=== PATIENT | male | born 1950 | race Caucasian/White ===

== ENCOUNTER 2017-07-20 15:15 | Observation (INO) | payer MEDICARE ==
[2017-07-20] MEDS ORDERED: NS 0.9% 1000 ML* 2,000 ML IV ONE (15:33)
[2017-07-20] MEDS ORDERED: Insulin REGULAR(*) 1 UNITS UNIT IV ONE (15:33)
[2017-07-20 16:21] LABS: ABS Basophils 0 10^3/ul (0-0.2); ABS Eosinophils 0.1 10^3/ul (0-0.6); ABS Lymphocytes 1.2 10^3/ul (1.0-4.8); ABS Monocytes 0.7 10^3/ul (0-0.8); ABS Neutrophils 2.9 10^3/ul (1.5-7.7); ABS Nucleated RBC 0 10^3/ul; Eosinophil % 1.5 % (0-6); Hematocrit 41 % (42-52); Hemoglobin 13.9 g/dl (14.0-18.0); Lymphocyte % 24.1 % (25-47); Mean Corpuscular HGB Conc 34 g/dl (31-36); Mean Corpuscular Hemoglobin 34 pg (27-31); Mean Corpuscular Volume 99 fL (80-94); Mean Platelet Volume 9 um3 (7.4-10.4); Nucleated Red Blood Cells % 0.1; Platelet Count 145 10^3/ul (150-450); Red Blood Count 4.08 10^6/ul (4.0-5.4); Red Cell Distribution Width 13 % (10.5-15); White Blood Count 4.9 10^3/ul (3.5-10.8)
[2017-07-20 16:50] LABS: EGFR Non-African American 87.5 (>60)
--- NOTE | 2017-07-20 17:10 | RAD ---
Indication: Hyperglycemia. Single frontal view of the chest performed at 1635 hours was reviewed. Comparison is made with previous exam dated August 19, 2014. No mediastinal shift is noted. Lung larson appear hyperinflated. No alveolar consolidation is noted. No pneumothorax is noted. IMPRESSION: HYPERINFLATED LUNG LARSON WITH NO EVIDENCE OF ACTIVE CARDIOPULMONARY DISEASE.
[2017-07-20] MEDS ORDERED: Dextrose 50% Syringe 50 ML* 25 GM/50 ML SYRINGE IV PUSH PRN (18:34)
[2017-07-20] MEDS ORDERED: Acetaminophen TAB* 325 MG PO PRN (18:34)
[2017-07-20] MEDS ORDERED: Ondansetron INJ* 2 MG/ML VIAL IV PRN (18:34)
[2017-07-20] MEDS ORDERED: Magnesium Sulfate 2 GM IV* 2 GM/50 ML BAG IVPB ONE (18:39)
[2017-07-20] MEDS ORDERED: NS 0.9% 1000 ML* 1,000 ML IV SCH (18:45)
[2017-07-20] MEDS ORDERED: Insulin GLARGINE(*) 1 UNITS UNIT SUBCUT SCH ×2 (19:00)
[2017-07-20 19:07] LABS: Urine Appearance Clear; Urine Blood Negative (Negative); Urine Color Straw; Urine Ketones 2+ (Negative); Urine Protein Negative (Negative); Urine Specific Gravity 1.026 (1.010-1.030); Urine Urobilinogen Negative (Negative)
[2017-07-20] MEDS: Heparin VIAL(*) 5000 UNITS/ML VIAL (FIVE THOUSAND) SUBCUT SCH (21:24)
[2017-07-20] MEDS: Insulin LISPRO* 1 UNITS UNIT SUBCUT SCH ×2 (21:28→22:25)
[2017-07-20 22:21] LABS: EGFR Non-African American 116.3 (>60)
--- NOTE | 2017-07-20 22:32 | HP ---
CC: Dr. Rushing * HISTORY AND PHYSICAL: DATE OF ADMISSION: 07/20/17 PRIMARY CARE PROVIDER: Dr. Rushing. ATTENDING PHYSICIAN WHILE IN THE HOSPITAL: Anjali Bach DO * (report dictated by Katelin Olivarez NP). CHIEF COMPLAINT: 1. Elevated blood sugar. 2. Elevated A1c. HISTORY OF PRESENT ILLNESS: Mr. Lopez is a 67-year-old male patient. He has a history of hypertension, hyperlipidemia, diabetes for which he has been on oral agents only and he was following up today with Dr. Rushing. His blood sugars have been running high. He had an A1c checked. According to the patient , it was 19, and the sugar, Dr. Rushing checked labs yesterday, those serial labs came back today and it was noted that the patient's blood sugar was over 800, so he was sent into the emergency department. The patient states that since , he has been having excessive thirst, he has been having polydipsia, no polyphagia, though he is just really thirsty. He says he has been peeing a lot. Polyuria has been definitely happening. He does state that his sugars have not been well controlled. He says they have been getting worse. He has been on again Januvia and there was talk with him starting Lantus and he is in the process of being referred to Dr. Murillo. The patient denied having any visual changes. He denies having any chest pain. He denies having any shortness of breath or any abdominal pain, hernia, vomiting, or diarrhea. There was concern because of the elevated blood sugars. He came into the ED today. It was noted that he appeared to be in mild DKA. His bicarb was mildly low. His anion gap was 22 and because of these findings, we were asked to evaluate for admission. PAST MEDICAL HISTORY: Significant for: 1. Hypertension. 2. Hyperlipidemia. 3. Diabetes. 4. History of prostate cancer. PAST SURGICAL HISTORY: He has had a prostatectomy. He has had a hydrocele repair. MEDICATIONS: His home medications include: 1. Milk thistle 200 mg daily. 2. Vitamin D 800 units p.o. daily. 3. Vitamin C 2000 mg p.o. daily. 4. Krill oil 2000 mg daily. 5. B12 1000 mcg daily. 6. Cinnamon 2000 mg daily. 7. Lantus 15 units subcu at bedtime. 8. Losartan 100 mg daily. 9. Folic acid 1 mg p.o. daily. 10. Hydrochlorothiazide 12.5 mg daily. 11. Metformin 1000 mg p.o. b.i.d. 12. Amlodipine 5 mg daily. 13. Vitamin D 5000 units p.o. daily. ALLERGIES TO MEDICATIONS: Include no known drug allergies. FAMILY HISTORY: His mother had a stroke. Father from a bowel obstruction. SOCIAL HISTORY: He is a former smoker. He is a cook at [employer]. He does drink alcohol occasionally. He did not appoint a surrogate decision maker at this point. REVIEW OF SYSTEMS: There is no documented fever. Denied having any significant weight change. There was no double vision. There is no ear discharge. Denies having any rhinorrhea. There is no sore throat. No thyroid enlargement. Denied having any chest pain. There is no orthopnea. There is no nocturnal dyspnea. He denies having any abdominal pain. There was no nausea , no vomiting. No dysuria, no frequency. No seizure, no loss of consciousness , no pruritus, and no skin ulcerations. Review of 14 systems completed, all others negative. PHYSICAL EXAMINATION GENERAL: At this time, Mr. Lopez is a 67-year-old male patient. He is sitting in the ER stretcher. He does not appear to be in any acute distress. VITAL SIGNS: Blood pressure 130/68, pulse 60, respirations 19, O2 sat 99% on room air, temperature 97.9. HEENT: Head: Atraumatic, normocephalic. Eyes: EOMs are intact. Sclerae anicteric and not pale. Throat: Oral mucosa appears to be moist. No oropharyngeal erythema. NECK: Supple. LUNGS: Clear to auscultation bilaterally. No wheezes, rales, or rhonchi. HEART: Sounds S1 and S2. Regular rate and rhythm. No murmurs, rubs, or gallops. ABDOMEN: Soft, flat, and nontender. Bowel sounds heard in all 4 quadrants. EXTREMITIES: Pulses are 2+ throughout. Moving all 4 extremities with 5/5 strength. NEUROLOGIC: He is awake. He is alert. He is oriented x3. Tongue midline. Beaming Inspector were equal. No gross focal deficits. SKIN: Intact. DIAGNOSTIC STUDIES/LAB DATA: WBC of 4.9, RBC of 4.80, hemoglobin 13.9, hematocrit 41, and platelet count of 145. ABG: His pH is 7.27, pCO2 was 34, bicarbonate was 15. Sodium was 130, potassium 3.6, chloride 92, bicarb 16, BUN was 15, creatinine 0.87, glucose 422, calcium 9.9, mag 1.8. Total bili 0.5, AST 15, ALT 20, alk phos was 52. His CRP was 3.04. Urine showed 2+ ketones, 3 + blood. The patient did have a chest x-ray obtained today, which revealed hyperinflated lung domínguez with no evidence of acute cardiopulmonary disease. There was an EKG obtained today as well, which shows a normal sinus rhythm with a rate of 62. No ST elevations or T-wave inversions were noted. It is reviewed to previous EKG, appears to be similar. He did have some depression at V4, V5, and V6. He has had some sort of depression there previously. Old medical records were reviewed. ASSESSMENT AND PLAN: Mr. Lopez is a 67-year-old male patient coming into the ED today with complaints of elevated blood sugar. We were asked to evaluate for admission. He will be admitted under observation status for: 1. Mild diabetic ketoacidosis. At this point, he has already got 2 L of fluid in the ED. I will continue normal saline at 150 an hour. We are going to get blood sugars every 4 hours with fluid coverage and also we will go ahead and give him Lantus. He has had extensive workup. He had C-peptide levels and insulin levels done as an outpatient. According to Dr. Rushing's note, these were low. He is to follow up with Dr. Murillo. I suspect that he probably has type 1 diabetes adult onset, which is rare, but again he will need followup with Endocrinology. Plan will be to get frequent BMPs every 6 hours, IV fluids , frequent insulin. Repeat BMP is pending now. He received insulin in the ED. 2. Hypertension. Continue meds as prescribed. 3. Hyperlipidemia. Continue statin therapy. 4. DVT prophylaxis: We will continue heparin subcu as he is moderate risk. 5. Code status: He is a full code. 6. Fluids, electrolytes, and nutrition: He can have a consistent carb diet. 7. Prostate cancer. Follow up with primary. TIME SPENT: On admission was 60 minutes, greater than half the time was spent face- to-face with the patient obtaining my history and physical, other half time was spent going over the plan of care with the patient and implementing plan of care. I did discuss the plan of care with my attending, Dr. Bach; she is in agreement. KATELIN OLVIAREZ NP [id number]/CPS #: [id number] MANDIE
[2017-07-21 00:35] LABS: EGFR Non-African American 87.5 (>60)
[2017-07-21] MEDS ORDERED: Potassium Chlor TAB* 20 MEQ TAB.ER PO ONE (01:03)
[2017-07-21] MEDS: Insulin LISPRO* 1 UNITS UNIT SUBCUT SCH ×3 (01:19→08:42)
[2017-07-21 06:39] LABS: ABS Basophils 0 10^3/ul (0-0.2); ABS Eosinophils 0.2 10^3/ul (0-0.6); ABS Lymphocytes 1.5 10^3/ul (1.0-4.8); ABS Monocytes 0.7 10^3/ul (0-0.8); ABS Neutrophils 2.6 10^3/ul (1.5-7.7); ABS Nucleated RBC 0 10^3/ul; Eosinophil % 3.5 % (0-6); Hematocrit 38 % (42-52); Hemoglobin 13.1 g/dl (14.0-18.0); Lymphocyte % 30.1 % (25-47); Mean Corpuscular HGB Conc 35 g/dl (31-36); Mean Corpuscular Hemoglobin 34 pg (27-31); Mean Corpuscular Volume 98 fL (80-94); Mean Platelet Volume 9 um3 (7.4-10.4); Nucleated Red Blood Cells % 0; Platelet Count 136 10^3/ul (150-450); Red Blood Count 3.85 10^6/ul (4.0-5.4); Red Cell Distribution Width 13 % (10.5-15)
[2017-07-21] MEDS: Heparin VIAL(*) 5000 UNITS/ML VIAL (FIVE THOUSAND) SUBCUT SCH (06:46)
[2017-07-21 06:49] LABS: EGFR Non-African American 110.7 (>60)
[2017-07-21 06:52] LABS: INR 0.75 (0.77-1.02)
--- NOTE | 2017-07-21 07:59 | ED ---
Rosibel Evans Nilda, scribed for Bereket Kingsley MD on 07/20/17 at 1710 . HPI Diabetic - HPI Summary HPI Summary: This patient is a 67 year old M presenting to [facility] with a chief complaint of hyperglycemia since yesterday. Pt states he was told to come to ED by PCP today. The patient rates the pain 0/10 in severity. Symptoms aggravated and alleviated by nothing. Patient reports palpitations, urinary frequency, unsteadiness, and weight loss (20 lbs). Pt states 2 years ago his HbA1C was perfect, but it has been worsening for the past 1.5 years. PMHx includes DM. Medications include Januvia (recent). - History Of Current Complaint Chief Complaint: EDDiabeticProb Time Seen by Provider: 07/20/17 15:33 Hx Obtained From: Patient Onset/Duration: Lasting Hours, Still Present Timing: Constant Character: Alert Aggravating: Nothing Alleviating: Nothing Associated Signs & Symptoms: Weight Loss - Allergies/Home Medications Allergies/Adverse Reactions: Allergies Allergy/AdvReac Type Severity Reaction Status Date / Time No Known Allergies Allergy Verified 08/19/14 11:06 Home Medications: Home Medications Cholecalciferol TAB* [Vitamin D TAB*] 5,000 units PO DAILY 07/20/17 [History Confirmed 07/20/17] Folic Acid TAB* [Folvite TAB*] 1 mg PO DAILY 07/20/17 [History Confirmed ] Insulin GLARGINE(*) [Lantus(*)] 15 units SUBCUT BEDTIME 07/20/17 [History Confirmed 07/20/17] Milk Thistle (Silybum Marianum [Milk Thistle] 200 mg PO DAILY 07/20/17 [History Confirmed 07/20/17] metFORMIN* [Glucophage 500 MG TAB *] 1,000 mg PO BID 07/20/17 [History Confirmed 07/20/17] PMH/Surg Hx/FS Hx/Imm Hx Endocrine/Hematology History: Reports: Hx Diabetes Sensory History: Denies: Hx Legally Blind EENT History: Denies: Hx Deafness Infectious Disease History: No Infectious Disease History: Denies: Traveled Outside the [place] in Last 30 Days - Family History Known Family History: Negative: Hypertension, Diabetes - Social History Occupation: Employed Full-time Lives: With Family Alcohol Use: Daily Alcohol Amount: bottle of wine daily, 2 shots vodka-last drink 07/19 Substance Use Type: Reports: None Smoking Status (MU): Former Smoker Review of Systems Positive: Other - hyperglycemia Positive: Palpitations Positive: Other - weight loss (20 lbs) Positive: frequency Neurological: Other - unsteadiness All Other Systems Reviewed And Are Negative: Yes Physical Exam - Summary Physical Exam Summary: VITAL SIGNS: Reviewed. GENERAL: Patient is a well-developed and nourished male who is lying comfortable in the stretcher. Patient is not in any acute respiratory distress. HEAD AND FACE: No signs of trauma. No ecchymosis, hematomas or skull depressions. No sinus tenderness. EYES: PERRLA, EOMI x 2, No injected conjunctiva, no nystagmus. EARS: Hearing grossly intact. Ear canals and tympanic membranes are within normal limits. MOUTH: Oropharynx within normal limits except for dry oral mucosa. NECK: Supple, trachea is midline, no adenopathy, no JVD, no carotid bruit, no c- spine tenderness, neck with full ROM. CHEST: Symmetric, no tenderness at palpation LUNGS: Clear to auscultation bilaterally. No wheezing or crackles. CVS: Regular rate and rhythm, S1 and S2 present, no murmurs or gallops appreciated. ABDOMEN: Soft, non-tender. No signs of distention. No rebound no guarding, and no masses palpated. Bowel sounds are normal. EXTREMITIES: FROM in all major joints, no edema, no cyanosis or clubbing. NEURO: Alert and oriented x 3. No acute neurological deficits. Speech is normal and follows commands. SKIN: Dry and warm Triage Information Reviewed: Yes Vital Signs On Initial Exam: Initial Vitals Temp Pulse Resp BP Pulse Ox 97.9 F 67 18 157/68 98 07/20/17 15:18 07/20/17 15:18 07/20/17 15:18 07/20/17 15:18 07/20/17 15:18 Vital Signs Reviewed: Yes Diagnostics - Vital Signs Vital Signs Temp Pulse Resp BP Pulse Ox 07/20/17 15:18 97.9 F 67 18 157/68 98 - Laboratory Lab Results: Lab Results 07/20/17 07/20/17 07/20/17 Range/Units 15:27 15:53 16:05 WBC (3.5-10.8) 10^3/ul RBC (4.0-5.4) 10^6/ul Hgb (14.0-18.0) g/dl Hct (42-52) % MCV (80-94) fL MCH (27-31) pg MCHC (31-36) g/dl RDW (10.5-15) % Plt Count (150-450) 10^3/ul MPV (7.4-10.4) um3 Neut % (Auto) (38-83) % Lymph % (Auto) (25-47) % Hamblen % (Auto) (1-9) % Eos % (Auto) (0-6) % Baso % (Auto) (0-2) % Absolute Neuts (auto) (1.5-7.7) 10^3/ul Absolute Lymphs (auto) (1.0-4.8) 10^3/ul Absolute Monos (auto) (0-0.8) 10^3/ul Absolute Eos (auto) (0-0.6) 10^3/ul Absolute Basos (auto) (0-0.2) 10^3/ul Absolute Nucleated RBC 10^3/ul Nucleated RBC % VBG pH 7.27 L (7.33-7.43) VBG pCO2 34 L (41-51) mmHg VBG pO2 24 L (35-45) mmHg VBG HCO3 15.3 L (24-28) mmol/L VBG O2 Saturation 46.4 L (70-80) % VBG Base Excess -10.3 L (0-4) Sodium 130 L (133-145) mmol/L Potassium TNP Chloride 92 L (101-111) mmol/L Carbon Dioxide 16 L (22-32) mmol/L Anion Gap 22 H (2-11) mmol/L BUN 15 (6-24) mg/dL Creatinine 0.87 (0.67-1.17) mg/dL Est GFR ( Amer) 112.6 (>60) Est GFR (Non-Af Amer) 87.5 (>60) BUN/Creatinine Ratio 17.2 (8-20) Glucose 422 H (70-100) mg/dL POC Glucose (mg/dL) > 444 H* (70-100) mg/dL Calcium 9.9 (8.6-10.3) mg/dL Magnesium TNP Total Bilirubin 0.50 (0.2-1.0) mg/dL AST TNP ALT 15 (7-52) U/L Alkaline Phosphatase 52 (34-104) U/L C-Reactive Protein 3.04 (< 5.00) mg/L Total Protein 6.6 (6.4-8.9) g/dL Albumin 4.2 (3.2-5.2) g/dL Globulin 2.4 (2-4) g/dL Albumin/Globulin Ratio 1.8 (1-3) 07/20/17 07/20/17 07/20/17 Range/Units 16:05 18:05 18:05 WBC 4.9 (3.5-10.8) 10^3/ul RBC 4.08 (4.0-5.4) 10^6/ul Hgb 13.9 L (14.0-18.0) g/dl Hct 41 L (42-52) % MCV 99 H (80-94) fL MCH 34 H (27-31) pg MCHC 34 (31-36) g/dl RDW 13 (10.5-15) % Plt Count 145 L (150-450) 10^3/ul MPV 9 (7.4-10.4) um3 Neut % (Auto) 59.4 (38-83) % Lymph % (Auto) 24.1 L (25-47) % Hamblen % (Auto) 14.5 H (1-9) % Eos % (Auto) 1.5 (0-6) % Baso % (Auto) 0.5 (0-2) % Absolute Neuts (auto) 2.9 (1.5-7.7) 10^3/ul Absolute Lymphs (auto) 1.2 (1.0-4.8) 10^3/ul Absolute Monos (auto) 0.7 (0-0.8) 10^3/ul Absolute Eos (auto) 0.1 (0-0.6) 10^3/ul Absolute Basos (auto) 0 (0-0.2) 10^3/ul Absolute Nucleated RBC 0 10^3/ul Nucleated RBC % 0.1 VBG pH (7.33-7.43) VBG pCO2 (41-51) mmHg VBG pO2 (35-45) mmHg VBG HCO3 (24-28) mmol/L VBG O2 Saturation (70-80) % VBG Base Excess (0-4) Sodium 135 (133-145) mmol/L Potassium Cancelled Cancelled Chloride 102 (101-111) mmol/L Carbon Dioxide 15 L (22-32) mmol/L Anion Gap 18 H (2-11) mmol/L BUN 13 (6-24) mg/dL Creatinine 0.68 (0.67-1.17) mg/dL Est GFR ( Amer) 149.6 (>60) Est GFR (Non-Af Amer) 116.3 (>60) BUN/Creatinine Ratio 19.1 (8-20) Glucose 202 H (70-100) mg/dL POC Glucose (mg/dL) (70-100) mg/dL Calcium 9.1 (8.6-10.3) mg/dL Magnesium 1.8 L Total Bilirubin (0.2-1.0) mg/dL AST Cancelled Cancelled ALT (7-52) U/L Alkaline Phosphatase (34-104) U/L C-Reactive Protein (< 5.00) mg/L Total Protein (6.4-8.9) g/dL Albumin (3.2-5.2) g/dL Globulin (2-4) g/dL Albumin/Globulin Ratio (1-3) //18 Range/Units 18:08 WBC (3.5-10.8) 10^3/ul RBC (4.0-5.4) 10^6/ul Hgb (14.0-18.0) g/dl Hct (42-52) % MCV (80-94) fL MCH (27-31) pg MCHC (31-36) g/dl RDW (10.5-15) % Plt Count (150-450) 10^3/ul MPV (7.4-10.4) um3 Neut % (Auto) (38-83) % Lymph % (Auto) (25-47) % Hamblen % (Auto) (1-9) % Eos % (Auto) (0-6) % Baso % (Auto) (0-2) % Absolute Neuts (auto) (1.5-7.7) 10^3/ul Absolute Lymphs (auto) (1.0-4.8) 10^3/ul Absolute Monos (auto) (0-0.8) 10^3/ul Absolute Eos (auto) (0-0.6) 10^3/ul Absolute Basos (auto) (0-0.2) 10^3/ul Absolute Nucleated RBC 10^3/ul Nucleated RBC % VBG pH (7.33-7.43) VBG pCO2 (41-51) mmHg VBG pO2 (35-45) mmHg VBG HCO3 (24-28) mmol/L VBG O2 Saturation (70-80) % VBG Base Excess (0-4) Sodium (133-145) mmol/L Potassium Chloride (101-111) mmol/L Carbon Dioxide (22-32) mmol/L Anion Gap (2-11) mmol/L BUN (6-24) mg/dL Creatinine (0.67-1.17) mg/dL Est GFR ( Amer) (>60) Est GFR (Non-Af Amer) (>60) BUN/Creatinine Ratio (8-20) Glucose (70-100) mg/dL POC Glucose (mg/dL) 193 H (70-100) mg/dL Calcium (8.6-10.3) mg/dL Magnesium Total Bilirubin (0.2-1.0) mg/dL AST ALT (7-52) U/L Alkaline Phosphatase (34-104) U/L C-Reactive Protein (< 5.00) mg/L Total Protein (6.4-8.9) g/dL Albumin (3.2-5.2) g/dL Globulin (2-4) g/dL Albumin/Globulin Ratio (1-3) Result Diagrams: 07/21/17 06:19 07/21/17 06:19 Lab Statement: Any lab studies that have been ordered have been reviewed, and results considered in the medical decision making process. - Radiology CXR Radiology Interpretation Completed By: Radiologist - CXR, per radiologist, reveals hyperinflated lung domínguez with no evidence of active cardiopulmonary disease. Dr. Kingsley has reviewed this radiology report. - EKG 1547 Cardiac Rate: NL EKG Rhythm: Sinus Rhythm - 63 bpm EKG Interpretation: ST elevation, but ST depression v4 to v6. Poor quality EKG for leads v2+v3. Re-Evaluation - Re-Evaluation First Eval Re-Evaluation Time: 18:14 Comment: Reviewed admission plan as well as lab results and imaging. Diabetic Course/Dx - Course Assessment/Plan: This patient is a 67 year old M presenting to [facility] with a chief complaint of hyperglycemia since yesterday. Pt states he was told to come to ED by PCP today. The patient rates the pain 0/10 in severity. Symptoms aggravated and alleviated by nothing. Patient reports palpitations, urinary frequency, unsteadiness, and weight loss (20 lbs). Pt states 2 years ago his HbA1C was perfect, but it has been worsening for the past 1.5 years. PMHx includes DM. Medications include Januvia (recent). Pending EKG and CXR. An EKG reveals NSR, 63bpm, no ST elevation, but ST depression v4 to v6. Poor quality EKG especially for leads v 2 and v3. CXR, per radiologist, reveals hyperinflated lung domínguez with no evidence of active cardiopulmonary disease. Dr. Kingsley has reviewed this radiology report. Test results are w/o significant abnormalities except for slight anemia, slight acidosis, CO2 16, Anion Gap 22, and Gluc 422. Chest XR negative for acute pathology. In the ED Course, pt was given 2L IV fluids and 10 U of Insulin. Pt is feeling better. However, b/c of possible DKA, I discussed case with Dr. Bach (hospitalist) at 1815, who accepted pt for admission. Dx DKA and DM uncontrolled. - Diagnoses Differential Dx: Diabetic Ketoacidosis, Hyperglycemia, Hyperosmolar State Provider Diagnoses: DKA (diabetic ketoacidoses), DM (diabetes mellitus), type 2, uncontrolled - Physician Notifications Discussed Care Of Patient With: Anjali Bach - Hospitalist Time Discussed With Above Provider: 18:15 Instructed by Provider To: Admit As Inpatient Discharge - Discharge Plan Condition: Stable Disposition: ADMITTED TO [facility] documentation as recorded by the Rosibel puente Nilda accurately reflects the service I personally performed and the decisions made by me, Bereket Kingsley MD.
[2017-07-21] MEDS ORDERED: amLODIPine TAB* 5 MG PO SCH (09:00)
[2017-07-21] MEDS ORDERED: Losartan TAB* 25 MG PO SCH (09:00)
--- NOTE | 2017-07-21 10:56 | PN ---
Subjective Date of Service: 07/21/17 Interval History: Mr. Lopez denies complaint and is eager for discharge to home. He specifically denies chest pain, SOB, nausea or abdominal pain. Objective Active Medications: Acetaminophen (Tylenol Tab*) 650 mg PO Q4H PRN Amlodipine Besylate (Norvasc Tab*) 5 mg PO DAILY [facility] Dextrose (D50w Syringe 50 Ml*) 12.5 gm IV PUSH .FOR FS < 60 - SS PRN Heparin Sodium (Porcine) (Heparin Vial(*)) 5,000 units SUBCUT Q8HR [facility] Insulin Glargine (Lantus(*)) 15 units SUBCUT Q24H [facility] Insulin Human Lispro (Humalog*) 0 units SUBCUT Q4H [facility] Losartan Potassium (Cozaar Tab*) 100 mg PO DAILY [facility] Ondansetron HCl (Zofran Inj*) 4 mg IV Q6H PRN Vital Signs: Temp Pulse Resp BP Pulse Ox 98.2 F 61 20 115/57 95 07/21/17 04:31 07/21/17 04:31 07/21/17 04:31 07/21/17 04:31 07/21/17 04:31 Oxygen Devices in Use Now: None Appearance: Male walking around in room in NAD Eyes: No Scleral Icterus Ears/Nose/Mouth/Throat: NL Teeth, Lips, Gums, Mucous Membranes Moist Neck: Trachea Midline Respiratory: Symmetrical Chest Expansion and Respiratory Effort, Clear to Auscultation Cardiovascular: NL Sounds; No Murmurs; No JVD, No Edema Abdominal: NL Sounds; No Tenderness; No Distention Lymphatic: No Cervical Adenopathy Extremities: No Edema Skin: No Rash or Ulcers Neurological: Alert and Oriented x 3, NL Muscle Strength and Tone Nutrition: Taking PO's Result Diagrams: 07/21/17 06:19 07/21/17 06:19 Additional Lab and Data: . Assess/Plan/Problems-Billing Assessment: Mr. Lopez is a 67 yo male with a PMH of diabetes who was admitted on 07/20/16 with mild DKA vs hyperosmolar non-ketotic acidosis. - Patient Problems (1) DKA (diabetic ketoacidoses) Comment: - BGs well controlled. - Continue lantus and resume metformin. (2) Hypertension Comment: - BP well controlled. - Continue amlodipine and losartan. (3) DVT prophylaxis Comment: - Heparin SQ. (4) Full code status Comment: Status and Disposition: OBV. Discharge to home.
[2017-07-21 12:08] VITALS: BP 125/63
--- NOTE | 2017-07-21 12:57 | DS ---
CC: Dr. Rushing * DATE OF ADMISSION: 07/20/2017. DATE OF DISCHARGE: 07/21/2017. ATTENDING PHYSICIAN: Dr. Anjali Bach * (dictation provided by Amanda Harden NP ). PRIMARY DIAGNOSIS: Mild diabetic ketoacidosis. SECONDARY DIAGNOSES: 1. History of diabetes which had been noninsulin dependent. 2. Hypertension. 3. Hyperlipidemia. 4. History of prostate cancer. PAST SURGICAL HISTORY: 1. History of prostatectomy. 2. History of hydrocele repair. MEDICATIONS AT THE TIME OF DISCHARGE: 1. Lantus 15 units subcutaneously at bedtime (patient now starting this medication). 2. Milk Thistle 200 mg p.o. daily. 3. Vitamin D 5,000 units p.o. daily. 4. Vitamin C 2,000 mg p.o. daily. 5. Krill Oil 2,000 mg p.o. daily. 6. Vitamin B12 1,000 mcg daily. 7. Cinnamon 2,000 mg daily. 8. Losartan 100 mg p.o. daily. 9. Folic Acid 1 mg p.o. daily. 10. Hydrochlorothiazide 12.5 mg p.o. daily. 11. Metformin 1,000 mg p.o. b.i.d. 12. Amlodipine 5 mg p.o. daily. HOSPITAL COURSE: Mr. Lopez is a 67-year-old male who presents to the hospital on 07/20/2017 with concern for elevated blood sugar and hemoglobin A1c. Please see the dictated history and physical from Daniel Olivarez NP for complete details. In brief, the patient had a hemoglobin A1c checked at his primary care physician's office which was 19 and he had blood sugar checked that was 800 ; therefore, he was sent directly to the emergency department. On review, the patient states that he had been having excessive thirst and urination since approximately . He states that he had been taking his blood sugar from time to time, but had not checked it in a couple weeks. When he was checking it, it was running about 200. Mr. Lopez was admitted to the hospital. He was started on Lantus 20 units at night. He was hydrated with IV fluids. With this he had good resolution. His anion gap, which was originally 20, is now 11. His BG's are well-controlled, running approximately 100 to 200 on the Lantus 20 units only. Mr. Lopez is medically stable for discharge to home. He is recommended to start on 15 units subcutaneously at bedtime of Lantus with Metformin. He will be following with Dr. Rushing within the next week and then on to see Dr. Murillo. Mr. Lopez is medically stable for discharge to home. DISPOSITION: To home. DIET: Consistent carbohydrate, diabetic. ACTIVITY: As tolerated. FOLLOW-UP PLANS: 1. Please follow-up with Dr. Rushing in the next five to seven days. 2. Please follow-up with Dr. Murillo when an appointment is available. Approximately 60 minutes were spent in the discharge of this patient, more than half that time was spent with the patient at the bedside reviewing the events leading up to this hospitalization, performing the physical exam and reviewing the plan of care. AMANDA HARDEN NP [id number]/CPS #: [id number] MANDIE
== END 2017-07-21 12:15 | disposition home or self-care (01) ==
LOC: ED 15:15 → MED 18:32
PROVIDERS: ADMIT Hospitalist; ATTEND Internal Medicine
DX: E11.10 Type 2 diabetes mellitus with ketoacidosis without coma (principal); I10 Essential (primary) hypertension; E78.5 Hyperlipidemia, unspecified; Z85.46 Personal history of malignant neoplasm of prostate; Z90.79 Acquired absence of other genital organ(s); Z87.438 Personal history of other diseases of male genital organs
CPT/HCPCS: 36415; 71045; 80048; 80053; 81003; 82803; 83735; 84132; 85025; 85610; 86140; 93005; 96365; 96366; 96375; 99284; A9270-GY; G0378; J1644; J3475